=== PATIENT | female | born 2005 | race Caucasian/White ===

== ENCOUNTER 2024-11-14 11:16 | Emergency (ER) | payer OTHER ==
[2024-11-14 11:27] VITALS: BP 122/80; PULSE 72; RESP 18; TEMP 97.4; O2SAT 94
[2024-11-14] MEDS ORDERED: DECADRON 10MG INJ. ONE (11:47)
[2024-11-14] MEDS ORDERED: TORAdol 30 mg Injection ONE (11:47)
--- NOTE | 2024-11-14 11:48 | ERPHSYRPT ---
- History of Present Illness Time Seen by Provider: 11/14/24 11:44 Source: patient Physician History: 19-year-old female otherwise healthy no significant past medical history presents to our ED for evaluation of left cervical paraspinal muscular pain that started today just prior to arrival.. Patient states she was standing in line at a local fast food restaurant when she felt the pain. Patient states after getting her food she walked towards her vehicle and felt slightly dizzy. The dizziness immediately resolved. Patient is currently asymptomatic with regard to the dizziness. No associated chest pain or shortness of breath. No nausea vomiting or diaphoresis. Patient's pain is localized to her left cervical paraspinal upper trapezius region. Pain reproduced with movement and palpation. Pain improved with rest. Patient otherwise feels well. She voices no other complaints or concerns at this time. Portions of this note were created with voice recognition technology. There may be grammatical, spelling, punctuation or sound alike errors Timing/Duration: today Severity: moderate Modifying Factors: Improves With: movement Associated Symptoms: denies symptoms Allergies/Adverse Reactions: No Known Drug Allergies Allergy (Unverified 06/22/14 21:25) Home Medications: Loratadine 10 mg [Claritin 10 mg] 10 mg PO DAILY 06/22/14 [History] - Review of Systems Constitutional: No Symptoms, No Fever, No Chills Eyes: No Symptoms Ears, Nose, & Throat: No Symptoms Respiratory: No Symptoms, No Cough, No Dyspnea Cardiac: No Symptoms, No Chest Pain, No Edema, No Syncope Abdominal/Gastrointestinal: No Symptoms, No Abdominal Pain, No Nausea, No Vomiting, No Diarrhea Genitourinary Symptoms: No Symptoms, No Dysuria Musculoskeletal: No Symptoms, No Back Pain, No Neck Pain Skin: No Symptoms, No Rash Neurological: No Symptoms, No Dizziness, No Focal Weakness, No Sensory Changes Psychological: No Symptoms Endocrine: No Symptoms Hematologic/Lymphatic: No Symptoms Immunological/Allergic: No Symptoms All Other Systems: Reviewed and Negative - Past Medical History Pertinent Past Medical History: No - Past Surgical History Past Surgical History: Yes Gastrointestinal: Cholecystectomy Other Surgical History: wisdom teeth - Female History Hx Last Menstrual Period: pre - Social History Smoking Status: Never smoker Exposure to second hand smoke: Yes Drug Use: none Patient Lives Alone: No - Nursing Vital Signs Nursing Vital Signs: Initial Vital Signs Temperature 97.4 F 11/14/24 11:26 Pulse Rate 72 11/14/24 11:26 Respiratory Rate 18 11/14/24 11:26 Blood Pressure 122/80 11/14/24 11:26 O2 Sat by Pulse Oximetry 94 L 11/14/24 11:26 - Physical Exam General Appearance: no apparent distress, alert Eye Exam: PERRL/EOMI, eyes nml inspection Ears, Nose, Throat Exam: normal ENT inspection, moist mucous membranes Neck Exam: normal inspection, non-tender, supple, other (Tenderness to palpation at the left cervical paraspinal musculature. There is palpable muscle spasm down into the upper trapezius as well. Pain worse with extension of her cervical spine. Pain also reproduced with resisted cervical spine rotation) Respiratory Exam: normal breath sounds, lungs clear, airway intact, No respiratory distress Cardiovascular Exam: regular rate/rhythm, normal heart sounds, normal peripheral pulses Gastrointestinal/Abdomen Exam: soft, normal bowel sounds, No tenderness, No mass Pelvic Exam: other (Patient reports she is currently on her menstrual cycle) Back Exam: normal inspection, normal range of motion, No CVA tenderness, No vertebral tenderness Extremity Exam: normal inspection, normal range of motion, pelvis stable Neurologic Exam: alert, oriented x 3, cooperative, normal mood/affect, sensation nml, No motor deficits Skin Exam: normal color, warm, dry, No rash Lymphatic Exam: No adenopathy SpO2 Interpretation: normal SpO2: 94 O2 Delivery: Room Air - Course Nursing assessment & vital signs reviewed: Yes - Progress Progress: improved Progress Note: 19-year-old female no significant past medical history with left cervical paraspinal and left upper trapezius muscle spasm. Physical exam reveals a palpable spasm increased tone. No trauma no fever. Radial pulses and PT DP pulses are equal bilaterally. No palpable abdominal masses. Patient's neurologic exam is within normal limits. Cranial nerve function is normal. Patient is neurologically normal. No focal or lateralizing symptomology. No dizziness no blurred vision no slurred speech. Patient received Decadron and Toradol for pain control. Patient declined a cervical collar. We will discharge patient home. Patient advised to follow-up with her primary care doctor within 48 hours for reevaluation. Patient agrees. She voices no other complaints or concerns at this time. Portions of this note were created with voice recognition technology. There may be grammatical, spelling, punctuation or sound alike errors Complexity of problem addressed is moderate acute complicated no critical care time. Complex of data reviewed and analyzed is none. No specialized testing ordered. Diagnosis made based on history and physical exam. Risk of complication and or risk of morbidity/mortality of patient management is moderate. A prescription for Toradol forwarded to patient's pharmacy. Vital stable. Time spent to discharge patient is approximately 15 minutes. Plan of care established for shared decision making. No social determinants of health present to impede follow-up. Portions of this note were created with voice recognition technology. There may be grammatical, spelling, punctuation or sound alike errors 11/14/24 11:52 Counseled pt/family regarding: diagnosis, need for follow-up - Departure Departure Disposition: Home Clinical Impression: Cervical paraspinal muscle spasm Condition: Stable Critical Care Time: No Referrals: TUNDE SWAIN, [employer] [Primary Care Provider] - Follow up/PCP as directed Additional Instructions: Discharge/Care Plan LANDON DOMINGO was seen on 11/14/24 in the Emergency Room. The patient was c ounseled regarding Diagnosis,Lab results, Imaging studies, need for follow up and when to return to the Emergency Room. Prescriptions given: Discharge Note I have spoken with the patient and/or caregivers. I have explained the patient's condition, diagnosis and treatment plan based on the information available to me at this time. I have answered the patient's and/or caregiver's questions and addressed any concerns. The patient and/or caregivers have as good understanding of the patient's diagnosis, condition and treatment plan as can be expected at this point. The vital signs have been stable. The patient's condition is stable and appropriate for discharge from the emergency department. The patient will pursue further outpatient evaluation with the primary care physician or other designated or consulting physician as outlined in the discharge instructions. The patient and/or caregivers are agreeable to this plan of care and follow-up instructions have been explained in detail. The patient and/or caregivers have received these instruction. The patient/and or caregivers are aware that any significant change in condition or worsening of symptoms should prompt an immediate return to this or the closest emergency department or call 911. Prescriptions: Ketorolac Trometh 10 mg Tab [TORAdol 10 MG TABLET] 10 mg PO TID 5 Days #15 tablet
[2024-11-14] MEDS: TORAdol 30 mg Injection IV ONE (11:50)
[2024-11-14] MEDS: DECADRON 10MG INJ. IM ONE (11:50)
== END 2024-11-14 12:17 | disposition home or self-care (01) ==
LOC: ED 11:16
DX: M62.838 Other muscle spasm (principal); M54.2 Cervicalgia; Z79.899 Other long term (current) drug therapy
CPT/HCPCS: 96372; 96374; 99283; 99284; J1100; J1885